=== PATIENT | female | born 1985 | race Two or more races ===

== ENCOUNTER 2017-02-06 14:34 | Outpatient (CLI) | payer SELFPAY ==
[~2017-02-06] VITALS: Ht 157.5 cm; Wt 115.0 kg
[~2017-02-06 14:34] MED LIST: OMEP40CA6 PO
[2017-02-06 15:10] VITALS: BP 115/57
[2017-02-06 15:25] LABS: ASPARTATE AMINO TRANSFERASE 12 U/L (15-37); BLOOD UREA NITROGEN 5 mg/dL (7-18)
[2017-02-06] MEDS ORDERED: METOCLOPRAMIDE 10MG TABLET PO ONE (17:00)
== END 2017-02-06 18:30 | disposition home or self-care (01) ==
LOC: LDOP 14:34
PROVIDERS: ATTEND Obstetrics & Gynecology
DX: O26.893 Other specified pregnancy related conditions, third trimester (principal); O99.343 Other mental disorders complicating pregnancy, third trimester; O34.83 Maternal care for other abnormalities of pelvic organs, third trimester; R10.9 Unspecified abdominal pain; G43.909 Migraine, unspecified, not intractable, without status migrainosus; E28.2 Polycystic ovarian syndrome; F32.9 Major depressive disorder, single episode, unspecified; Z3A.28 28 weeks gestation of pregnancy
CPT/HCPCS: 36415; 59025; 76705; 80053; 81001; 82150; 83690; 84550; 85025; 87086; 99211; G0463

== ENCOUNTER 2017-02-27 11:17 | Outpatient (CLI) | payer OTHER ==
[~2017-02-27] VITALS: Ht 157.5 cm; Wt 115.0 kg
[2017-02-27 12:00] VITALS: BP 119/72
[2017-02-27 12:40] LABS: ASPARTATE AMINO TRANSFERASE 11 U/L (15-37); BLOOD UREA NITROGEN 5 mg/dL (7-18)
[2017-02-27] MEDS ORDERED: MAALOX/HYOSCYAMINE/LIDOCAINE 45 ML BOTTLE PO ONE (13:20)
== END 2017-02-27 14:06 | disposition home or self-care (01) ==
LOC: LDOP 11:17
PROVIDERS: ATTEND Obstetrics & Gynecology
DX: O26.893 Other specified pregnancy related conditions, third trimester (principal); O99.343 Other mental disorders complicating pregnancy, third trimester; F32.9 Major depressive disorder, single episode, unspecified; O34.83 Maternal care for other abnormalities of pelvic organs, third trimester; O21.9 Vomiting of pregnancy, unspecified; E28.2 Polycystic ovarian syndrome; R19.7 Diarrhea, unspecified; R10.11 Right upper quadrant pain; Z3A.33 33 weeks gestation of pregnancy
CPT/HCPCS: 36415; 59025; 76705; 76815; 80053; 82150; 83690; 85025; 99211; G0463

== ENCOUNTER 2017-04-16 09:38 | Outpatient (CLI) | payer MEDICAID, OTHER ==
[~2017-04-16] VITALS: Ht 157.5 cm; Wt 122.7 kg
[2017-04-16 09:48] VITALS: BP 118/69
[2017-04-16] MEDS ORDERED: PREN1TAB60 PO (10:23)
== END 2017-04-16 13:15 | disposition home or self-care (01) ==
LOC: LDOP 09:38
PROVIDERS: ATTEND Obstetrics & Gynecology
DX: O26.893 Other specified pregnancy related conditions, third trimester (principal); O34.83 Maternal care for other abnormalities of pelvic organs, third trimester; O99.343 Other mental disorders complicating pregnancy, third trimester; G43.909 Migraine, unspecified, not intractable, without status migrainosus; E28.2 Polycystic ovarian syndrome; F32.9 Major depressive disorder, single episode, unspecified; Z3A.38 38 weeks gestation of pregnancy
CPT/HCPCS: 59025; 76819; 76820; 99211; G0463

== ENCOUNTER 2017-04-17 03:35 | Inpatient (IN) | payer MEDICAID ==
[~2017-04-17] VITALS: Ht 157.5 cm; Wt 123.0 kg
[~2017-04-17 03:35] MED LIST changes: +PREN1TAB60 PO
[2017-04-17 04:09] VITALS: BP 128/78
[2017-04-17] MEDS ORDERED: OXYTOCIN 30U/ 0.9% NaCL 500ML 500 ML IV ONE (04:24)
[2017-04-17] MEDS ORDERED: D5%-LACTATED RINGERS 1,000 ML IV SCH (04:24)
[2017-04-17] MEDS: LACTATED RINGERS 1,000 ML IV SCH ×2 (04:24→18:42)
[2017-04-17] MEDS ORDERED: FENTANYL PF 100 MCG/2ML IV PRN (04:30)
[2017-04-17] MEDS ORDERED: TERBUTALINE 1 MG/ML, 1ML IVPush PRN (04:30)
[2017-04-17] MEDS ORDERED: ONDANSETRON 2MG/ML, 2ML IVPush PRN (04:30)
[2017-04-17] MEDS ORDERED: FENTANYL PF 100 MCG/2ML IVPush PRN (04:30)
[2017-04-17] MEDS ORDERED: MISOPROSTOL 25 MCG TABLET ONE (04:30)
[2017-04-17] MEDS ORDERED: AMPICILLIN 2 GM in SODIUM CHLORIDE 0.9% 50 ML IVPB ONE (04:30)
[2017-04-17] MEDS ORDERED: OXYTOCIN 30U/ 0.9% NaCL 500ML 500 ML ONE ×2 (04:31→12:46)
[2017-04-17] MEDS ORDERED: NEWBORN KIT ONE (04:31)
[2017-04-17] MEDS: MISOPROSTOL 25 MCG TABLET SL PRN ×2 (05:05→09:15)
[2017-04-17 05:39] LABS: HEMATOCRIT 35.1 % (34.6-47.8); HEMOGLOBIN 11.5 g/dL (11.7-16.4); WHITE BLOOD COUNT 9.4 x10^3/uL (3.4-10)
[2017-04-17 05:45] LABS: DIFF TOTAL CELLS COUNTED 100 CELL DIFF
[2017-04-17 05:46] LABS: VERIFY COUNTS? YES
[2017-04-17 05:47] LABS: ANISOCYTOSIS 1+; GIANT PLATELETS 1+; LARGE PLATELETS 1+
[2017-04-17] MEDS: AMPICILLIN 1 GM in SODIUM CHLORIDE 0.9% 50 ML IVPB SCH ×3 (08:30→18:42)
[2017-04-17] MEDS ORDERED: DIPH,PERTUSS(ACELL),TET VAC/PF NC IM-VACC ONE (11:00)
[2017-04-17] MEDS ORDERED: LIDOCAINE 1%, 20ML ONE (12:45)
[2017-04-17] MEDS ORDERED: MISOPROSTOL 200 MCG TABLET ONE (12:46)
[2017-04-17] MEDS ORDERED: OXYTOCIN 30U/ 0.9% NaCL 500ML 500 ML IV PRN ×2 (12:59)
[2017-04-17] MEDS ORDERED: LIDOCAINE/PF 1.5%-EPI 1:200K, 30ML ONE (18:09)
[2017-04-17] MEDS ORDERED: FENTANYL/BUPIV./NS/PF 250 ML EPIDCONT ONE (18:09)
[2017-04-17] MEDS ORDERED: FENTANYL/BUPIV./NS/PF 250 ML EPIDCONT SCH (18:54)
[2017-04-17] MEDS ORDERED: LACTATED RINGERS 1,000 ML IV SCH ×3 (18:54→21:57)
[2017-04-17] MEDS ORDERED: NALOXONE 0.4 MG/ML, 1ML IVPush PRN (19:00)
[2017-04-17] MEDS ORDERED: LACTATED RINGERS 1,000 ML IVBOLUS PRN (19:00)
[2017-04-17] MEDS ORDERED: EPHEDRINE 50 MG/ML, 1ML IVPush PRN (19:00)
[2017-04-17] MEDS ORDERED: SODIUM CITRATE/CITRIC ACID 30 ML UDC ONE (21:10)
[2017-04-17] MEDS ORDERED: METOCLOPRAMIDE 5 MG/ML, 2ML ONE (21:11)
[2017-04-17] MEDS ORDERED: LIDOCAINE/MPF 2%-EPI 1:200K, 20 ML ONE (21:18)
[2017-04-17] MEDS ORDERED: LACTATED RINGERS 1,000 ML IVBOLUS ONE (21:30)
[2017-04-17] MEDS ORDERED: SODIUM CITRATE/CITRIC ACID 30 ML UDC PO ONE (21:30)
[2017-04-17] MEDS ORDERED: METOCLOPRAMIDE 5 MG/ML, 2ML IV ONE (21:30)
[2017-04-17] MEDS ORDERED: OXYTOCIN 30U/ 0.9% NaCL 500ML 500 ML IV SCH (21:57)
[2017-04-17] MEDS ORDERED: CARBOPROST TROMETHAMINE 250 MCG/ML, 1ML IM PRN (22:00)
[2017-04-17] MEDS ORDERED: ACETAMINOPHEN 325 MG TABLET PO PRN (22:00)
[2017-04-17] MEDS ORDERED: MISOPROSTOL 200 MCG TABLET PR PRN (22:00)
[2017-04-17] MEDS ORDERED: METHYLERGONOVINE 0.2 MG/ML IM PRN (22:00)
[2017-04-17] MEDS ORDERED: morphine SULFATE 10 MG/ML, 1ML IVPush PRN (22:00)
[2017-04-17] MEDS ORDERED: ONDANSETRON 2MG/ML, 2ML IV PRN (22:00)
[2017-04-17] MEDS ORDERED: MEPERIDINE/PF 50 MG/ML IM PRN (22:00)
[2017-04-17] MEDS ORDERED: METOCLOPRAMIDE 5 MG/ML, 2ML IV PRN (22:00)
[2017-04-17] MEDS ORDERED: FENTANYL PF 250 MCG/5ML ONE (22:27)
[2017-04-17] MEDS ORDERED: FENTANYL PF 100 MCG/2ML ONE (23:42)
[2017-04-17] MEDS ORDERED: OXYcodone 5 MG/5 ML ORAL.SOL UDC ONE (23:42)
[2017-04-18] MEDS ORDERED: ONDANSETRON 2MG/ML, 2ML IV PRN (00:30)
[2017-04-18] MEDS ORDERED: MEPERIDINE/PF 25MG/0.5ML IV PRN (00:30)
[2017-04-18] MEDS ORDERED: morphine SULFATE 10 MG/ML, 1ML IV PRN (00:30)
[2017-04-18] MEDS ORDERED: FENTANYL PF 100 MCG/2ML IVPush PRN (00:30)
[2017-04-18] MEDS ORDERED: MIDAZOLAM 1 MG/ML, 5ML IV PRN (00:30)
[2017-04-18] MEDS ORDERED: OXYcodone 5 MG/5 ML ORAL.SOL UDC PO PRN ×2 (00:30)
[2017-04-18] MEDS ORDERED: EPHEDRINE 50 MG/ML, 1ML IV PRN (00:30)
[2017-04-18] MEDS ORDERED: FENTANYL PF 100 MCG/2ML IV ONE (00:30)
[2017-04-18 01:00] VITALS: BP 141/85
[2017-04-18] MEDS: OXYcodone IR 5MG TABLET PO PRN ×7 (01:15→23:03)
[2017-04-18] MEDS: IBUPROFEN 600 MG TABLET PO PRN ×3 (02:38→17:46)
[2017-04-18 03:39] VITALS: BP 131/75
[2017-04-18 06:24] LABS: HEMOGLOBIN 10.6 g/dL (11.7-16.4); WHITE BLOOD COUNT 15.3 x10^3/uL (3.4-10)
[2017-04-18 07:25] VITALS: BP 120/69
[2017-04-18 13:00] VITALS: BP 116/76
[2017-04-18] MEDS: DOCUSATE 100 MG CAPSULE PO PRN ×2 (13:22→23:03)
[2017-04-18] MEDS: PRENATAL VIT/IRON/FA 1 EACH TABLET PO SCH (13:22)
[2017-04-18 21:00] VITALS: BP 120/75
[2017-04-19] MEDS: OXYcodone IR 5MG TABLET PO PRN ×5 (04:11→23:03)
[2017-04-19] MEDS: IBUPROFEN 600 MG TABLET PO PRN ×3 (04:11→23:03)
[2017-04-19 07:44] VITALS: BP 118/79
[2017-04-19] MEDS: DOCUSATE 100 MG CAPSULE PO PRN ×2 (09:04→23:03)
[2017-04-19] MEDS: PRENATAL VIT/IRON/FA 1 EACH TABLET PO SCH (09:04)
[2017-04-19 19:05] VITALS: BP 132/80
[2017-04-20] MEDS: OXYcodone IR 5MG TABLET PO PRN ×5 (03:36→22:20)
[2017-04-20] MEDS: IBUPROFEN 600 MG TABLET PO PRN ×3 (05:25→22:20)
[2017-04-20 08:00] VITALS: BP 115/64
[2017-04-20] MEDS: PRENATAL VIT/IRON/FA 1 EACH TABLET PO SCH (09:11)
[2017-04-20] MEDS: DOCUSATE 100 MG CAPSULE PO PRN ×2 (09:11→22:20)
[2017-04-20 20:00] VITALS: BP 125/69
[2017-04-21] MEDS: OXYcodone IR 5MG TABLET PO PRN ×3 (02:26→12:05)
[2017-04-21] MEDS: IBUPROFEN 600 MG TABLET PO PRN (06:26)
[2017-04-21 07:00] VITALS: BP 133/70
[2017-04-21] MEDS: DOCUSATE 100 MG CAPSULE PO PRN (08:16)
[2017-04-21] MEDS ORDERED: IBUP-1222 PO (08:33)
[2017-04-21] MEDS ORDERED: OXYC-302 PO (08:33)
[2017-04-21] MEDS ORDERED: SENN-1 PO (08:34)
[2017-04-21] MEDS ORDERED: FERR324T8 PO (08:36)
[2017-04-21] MEDS: PRENATAL VIT/IRON/FA 1 EACH TABLET PO SCH (09:10)
== END 2017-04-21 15:36 | disposition home or self-care (01) | DRG 766 ==
LOC: LDOP 03:35 → LDIP 04:29 → 2NW 04-18 00:32
PROVIDERS: ADMIT Obstetrics & Gynecology; ATTEND Obstetrics & Gynecology
PROC: 10D00Z1 Extraction of Products of Conception, Low, Open Approach (ICD-10-PCS; principal; 2017-04-17)
DX: O62.0 Primary inadequate contractions (principal); E66.01 Morbid (severe) obesity due to excess calories; Z37.0 Single live birth; O99.214 Obesity complicating childbirth; O75.89 Other specified complications of labor and delivery; Z3A.38 38 weeks gestation of pregnancy; M35.00 Sjogren syndrome, unspecified; O69.81X0 Labor and delivery complicated by cord around neck, without compression, not applicable or unspecified; O77.0 Labor and delivery complicated by meconium in amniotic fluid
CPT/HCPCS: 36415; 82803; 85025; 86850; 86900; 89060; 90715; J0290; J3010; J2590; J2765; J7120; Q0114

== ENCOUNTER 2018-10-16 08:08 | Emergency (ER) | payer MEDICAID ==
[~2018-10-16] VITALS: Ht 157.5 cm; Wt 121.9 kg
[~2018-10-16 08:08] MED LIST changes: +FERR324T8 PO; +IBUP-1222 PO; +OXYC-302 PO; +SENN-92 PO
[2018-10-16 08:11] VITALS: BP 118/87
--- NOTE | 2018-10-16 08:31 | NUR ---
PT PRESENTS TO ED WITH COUGH/COLD X1W, "COUGHING UP BROWNISH/GREEN WITH BLOOD". PROVIDER AT BEDSIDE. EKG DONE. CALL LIGHT WITHIN REACH. VSS. WCTM
[2018-10-16 09:20] LABS: RAPID INFLUENZA A Negative (Negative); RAPID INFLUENZA B Negative (Negative)
== END 2018-10-16 09:55 | disposition home or self-care (01) ==
LOC: ED 09:05
DX: J06.9 Acute upper respiratory infection, unspecified (principal); G43.909 Migraine, unspecified, not intractable, without status migrainosus; K21.9 Gastro-esophageal reflux disease without esophagitis
CPT/HCPCS: 71046; 87081; 87400; 87880; 93005; 99284

== ENCOUNTER 2018-10-24 07:39 | Emergency (ER) | payer OTHER, MEDICAID ==
[~2018-10-24] VITALS: Ht 157.5 cm; Wt 120.8 kg
[2018-10-24 07:42] VITALS: BP 114/76
--- NOTE | 2018-10-24 08:12 | NUR ---
PT AMBULATORY TO ROOM 16 W/ C/O COUGH X 1 WK. PT STATES SHE WAS RECENTLY DX W/ STREP THROAT AND IS ON AMOXIXILLIN 50-0 MG TID. PT STATES COUGH W/ PHLEGM BROWN GREEN W BRB STREAKS. [facility].
== END 2018-10-24 09:15 | disposition home or self-care (01) ==
LOC: ED 09:09
DX: J20.9 Acute bronchitis, unspecified (principal); K21.9 Gastro-esophageal reflux disease without esophagitis; G43.909 Migraine, unspecified, not intractable, without status migrainosus
CPT/HCPCS: 71046; 99283

== ENCOUNTER → 2018-11-04 | Outpatient (CLI) | payer MEDICAID, OTHER ==
[2018-11-04 12:46] LABS: BASOPHILS # (AUTO) 0.06 x10^3/uL (0-0.1); BASOPHILS % (AUTO) 1 % (0-1); EOSINOPHILS # (AUTO) 0.18 x10^3/uL (0-0.4); EOSINOPHILS % (AUTO) 2 % (1-7); LYMPHOCYTES # (AUTO) 3.08 x10^3/uL (1-3.4); LYMPHOCYTES % (AUTO) 32 % (22-44); MD NO; MEAN CORPUSCULAR HEMOGLOBIN 26.8 pg (27.0-34.8); MEAN CORPUSCULAR HGB CONC 32.2 g/dL (32.4-35.8); MEAN CORPUSCULAR VOLUME 83.1 fL (80-100); MEAN PLATELET VOLUME 10.5 fL (7.4-10.4); MONOCYTES # (AUTO) 0.44 x10^3/uL (0.2-0.8); MONOCYTES % (AUTO) 5 % (2-9); NEUTROPHILS # (AUTO) 5.76 x10^3/uL (1.8-6.8); NEUTROPHILS % (AUTO) 61 % (42-75); PLATELET COUNT 293 x10^3/uL (130-400); RED BLOOD COUNT 4.99 x10^6/uL (3.82-5.3)
[2018-11-04 13:03] LABS: ALBUMIN 3.7 g/dL (3.4-5.0); ANION GAP 5 mmol/L (5-15); CALCIUM 9.1 mg/dL (8.5-10.1); CHLORIDE 106 mmol/L (98-107)
[2018-11-04 13:12] LABS: ALANINE AMINOTRANSFERASE 23 U/L (12-78); ALKALINE PHOSPHATASE 113 U/L (45-117); BILIRUBIN,TOTAL 0.4 mg/dL (0.2-1.0); CHOL/HDL RATIO 4.8; CHOLESTEROL, TOTAL 191 mg/dL (140-239); CREATININE 0.69 mg/dL (0.55-1.02); FREE T4 (FREE THYROXINE) 1.08 ng/dL (0.76-1.46); HDL CHOL % 21 % (28-40); HDL CHOLESTEROL (DIRECT) 40 mg/dL (40-60); LDL CHOLESTEROL,CALCULATED 127 mg/dL (54-169); LDL/HDL RATIO 3.2 (0.5-3.0); TOTAL PROTEIN 8.3 g/dL (6.4-8.2); TRIGLYCERIDES 121 mg/dL (50-200); VLDL CHOLESTEROL 24 mg/dL (0-25)
[2018-11-04 13:27] LABS: HEMOGLOBIN A1C 6.5 % (4.2-6.3)
== END | disposition home or self-care (01) ==
LOC: CFH 09:26
PROVIDERS: ATTEND Nurse Practitioner Family
DX: R73.9 Hyperglycemia, unspecified (principal); E04.1 Nontoxic single thyroid nodule; E28.2 Polycystic ovarian syndrome; M35.00 Sjogren syndrome, unspecified
CPT/HCPCS: 36415; 80053; 80061; 82306; 83001; 83002; 83036; 84439; 84443; 85025

== ENCOUNTER → 2018-12-08 | Outpatient (CLI) | payer OTHER | END | disposition home or self-care (01) | LOC: CFH 11:00 | PROVIDERS: ATTEND Family Medicine | DX: E04.1 Nontoxic single thyroid nodule (principal) | CPT/HCPCS: 76536 ==

== ENCOUNTER 2019-02-19 10:41 | Day surgery (SDC) | payer OTHER ==
[~2019-02-19] VITALS: Ht 160 cm; Wt 124.5 kg
[~2019-02-19 10:41] MED LIST changes: +BUPIVACAINE/EPI 0.5% 1:200K ONE
[2019-02-19] MEDS ORDERED: FENTANYL PF 250 MCG/5ML ONE (10:50)
[2019-02-19] MEDS ORDERED: MIDAZOLAM 1 MG/ML, 2ML ONE (10:50)
[2019-02-19] MEDS ORDERED: CEFAZOLIN 1,000 MG ONE ×2 (10:54→11:54)
[2019-02-19] MEDS ORDERED: PROPOFOL 10 MG/ML, 20ML ONE (10:54)
[2019-02-19] MEDS ORDERED: DEXAMETHASONE 4 MG/ML, 1ML ONE (10:54)
[2019-02-19] MEDS ORDERED: ONDANSETRON 2MG/ML, 2ML ONE (10:54)
[2019-02-19] MEDS ORDERED: LACTATED RINGERS 1,000 ML IV SCH (11:19)
[2019-02-19] MEDS ORDERED: METF500T17 PO (11:22)
[2019-02-19] MEDS ORDERED: OMEP40CA6 PO (11:22)
[2019-02-19] MEDS ORDERED: KETO1SPR IH (11:22)
[2019-02-19] MEDS ORDERED: MULT-658 PO (11:23)
[2019-02-19] MEDS ORDERED: ONDANSETRON ODT 8 MG PO ONE (11:30)
[2019-02-19] MEDS ORDERED: ACETAMINOPHEN 500 MG TABLET PO ONE (11:30)
[2019-02-19] MEDS ORDERED: SCOPOLAMINE PATCH, 1.5MG PATCH.TD72 TD ONE (11:30)
[2019-02-19] MEDS ORDERED: GABAPENTIN 300 MG CAPSULE PO ONE (11:30)
[2019-02-19 11:47] VITALS: BP 98/66
[2019-02-19] MEDS ORDERED: ONDANSETRON 2MG/ML, 2ML IV PRN (12:00)
[2019-02-19] MEDS ORDERED: PROMETHAZINE 25 MG SUPP PR PRN (12:00)
[2019-02-19] MEDS ORDERED: HALOPERIDOL 5 MG/ML IV PRN (12:00)
[2019-02-19] MEDS ORDERED: LABETALOL 5MG/ML, 20ML IV PRN (12:00)
[2019-02-19] MEDS ORDERED: FENTANYL PF 100 MCG/2ML IV PRN (12:00)
[2019-02-19] MEDS ORDERED: MORPHINE SULFATE 4 MG/ML, 1ML IVPush PRN (12:00)
[2019-02-19] MEDS ORDERED: ONDANSETRON ODT 8 MG PO PRN (12:00)
[2019-02-19] MEDS ORDERED: hydrALAzine 20 MG/ML, 1ML IV PRN (12:00)
[2019-02-19] MEDS ORDERED: PROMETHAZINE 12.5 MG SUPP PR PRN (12:00)
[2019-02-19] MEDS ORDERED: MEPERIDINE/PF 25MG/0.5ML IVPush PRN (12:00)
[2019-02-19] MEDS ORDERED: PROMETHAZINE 25 MG/ML, 1ML IV PRN (12:00)
[2019-02-19] MEDS ORDERED: HYDROmorphone 2 MG/ML, 1ML IVPush PRN (12:00)
[2019-02-19] MEDS ORDERED: PROMETHAZINE 25 MG/ML, 1ML IM PRN ×2 (12:00)
[2019-02-19] MEDS ORDERED: FENTANYL PF 100 MCG/2ML ONE (13:28)
[2019-02-19] MEDS ORDERED: OXYcodone 5 MG/5 ML ORAL.SOL UDC ONE ×2 (13:28→13:38)
[2019-02-19] MEDS: OXYcodone 5 MG/5 ML ORAL.SOL UDC PO PRN ×2 (13:30→13:40)
[2019-02-19] MEDS ORDERED: morphine SULFATE 10 MG/ML, 1ML ONE (14:34)
== END 2019-02-19 16:30 | disposition home or self-care (01) ==
LOC: OUT 10:41
PROVIDERS: ATTEND Surgery
DX: D48.1 Neoplasm of uncertain behavior of connective and other soft tissue (principal); E28.2 Polycystic ovarian syndrome; K21.9 Gastro-esophageal reflux disease without esophagitis; M35.00 Sjogren syndrome, unspecified; E66.01 Morbid (severe) obesity due to excess calories; Z68.43 Body mass index [BMI] 50.0-59.9, adult; Z72.89 Other problems related to lifestyle; Z79.84 Long term (current) use of oral hypoglycemic drugs; Z79.899 Other long term (current) drug therapy; Z87.891 Personal history of nicotine dependence
CPT/HCPCS: 21552; 81025; 88304; J0690; J1100; J2250; J2270; J2405; J2704; J3010; J7120; Q0162; 88307

== ENCOUNTER 2020-03-25 13:12 | Emergency (ER) | payer OTHER ==
[~2020-03-25] VITALS: Ht 157.5 cm; Wt 119.2 kg
[~2020-03-25 13:12] MED LIST changes: -BUPIVACAINE/EPI 0.5% 1:200K ONE; +KETO1SPR IH; +METF500T17 PO; +MULT-658 PO; +OMEP40CA42 PO; -OMEP40CA6 PO
--- NOTE | 2020-03-25 13:36 | NUR ---
PT HAD HER LEFT BACK MORAL ROOT CANAL THAT WAS REMOVED YESTERDAY. PT PRESENTS TACHY, AND WITH A FEVER, LEFT CHEEK SWELLING NOTED. IN THE MOUTH WHITE DISCHARGE IS NOTED, PT NOTES DRAINAGE AND STATES SHE NOT A FOUL TASTE/ ODOR. PT STATES "MY GOT PAID TODAY SO I HAD TO WAIT TO GET MY MEDS" PT STARTED AMOXICILLIN TODAY.
[2020-03-25] MEDS ORDERED: ACETAMINOPHEN 500 MG TABLET ONE (13:59)
[2020-03-25] MEDS ORDERED: ACETAMINOPHEN 500 MG TABLET PO ONE (14:00)
--- NOTE | 2020-03-25 14:06 | NUR ---
PT HAS BEEN AMBULATORY TO BATHROOM, STEADY GAIT. PT NOW LAYING IN BED, CONNECTED TO BP AND O2 MONITORS, CALL LIGHT IN REACH, AT BEDSIDE.
[2020-03-25 14:18] LABS: MICROSCOPIC INDICATED
[2020-03-25 14:40] LABS: ALBUMIN 3.9 g/dL (3.4-5.0); ANION GAP 6 mmol/L (5-15); BASOPHILS # (AUTO) 0.02 x10^3/uL (0-0.1); BASOPHILS % (AUTO) 0 % (0-1); CALCIUM 9.2 mg/dL (8.5-10.1); CHLORIDE 105 mmol/L (98-107); CREATININE 0.95 mg/dL (0.55-1.02); EOSINOPHILS # (AUTO) 0.02 x10^3/uL (0-0.4); EOSINOPHILS % (AUTO) 0 % (1-7); LYMPHOCYTES % (AUTO) 9 % (22-44); MD NO; MEAN CORPUSCULAR HEMOGLOBIN 25.9 pg (27.0-34.8); MEAN CORPUSCULAR VOLUME 80.9 fL (80-100); MEAN PLATELET VOLUME 10.5 fL (7.4-10.4); MONOCYTES % (AUTO) 6 % (2-9); NEUTROPHILS # (AUTO) 12.06 x10^3/uL (1.8-6.8); NEUTROPHILS % (AUTO) 85 % (42-75); PLATELET COUNT 237 x10^3/uL (130-400); RED BLOOD COUNT 5.08 x10^6/uL (3.82-5.3); RED CELL DISTRIBUTION WIDTH 16.7 % (9.6-15.2)
[2020-03-25] MEDS ORDERED: HYDROcodone/APAP 5/325 TABLET ONE (15:42)
--- NOTE | 2020-03-25 15:50 | NUR ---
PT AMBULATORY TO BATHROOM, STEADY GAIT.
--- NOTE | 2020-03-25 15:59 | NUR ---
BEDSIDE REPORT GIVEN TO MATTHEW HARRISON.
[2020-03-25] MEDS ORDERED: HYDROcodone/APAP 5/325 TABLET PO ONE (16:00)
[2020-03-25] MEDS ORDERED: CEFTRIAXONE 1,000 MG ONE (16:25)
[2020-03-25] MEDS ORDERED: LIDOCAINE-MPF 1%, 5ML ONE (16:26)
[2020-03-25] MEDS ORDERED: CEFTRIAXONE 1,000 MG IM ONE (16:30)
[2020-03-25 17:30] VITALS: BP 121/67
== END 2020-03-25 17:32 | disposition home or self-care (01) ==
LOC: ED 13:54
DX: N30.01 Acute cystitis with hematuria (principal); K08.89 Other specified disorders of teeth and supporting structures; R39.15 Urgency of urination; R00.0 Tachycardia, unspecified; M79.7 Fibromyalgia
CPT/HCPCS: 36415; 71045; 80048; 81001; 82040; 83605; 85025; 87040; 87077; 87086; 96372; 99285; J0696; 87186

== ENCOUNTER 2020-03-27 03:14 | Emergency (ER) | payer OTHER ==
[~2020-03-27] VITALS: Ht 157.5 cm; Wt 118.0 kg
[2020-03-27 03:16] VITALS: BP 127/70
[2020-03-27] MEDS ORDERED: ONDANSETRON 2MG/ML, 2ML ONE (03:59)
[2020-03-27] MEDS ORDERED: CEFTRIAXONE PMX 1GM/50ML 50 ML ONE (03:59)
[2020-03-27] MEDS ORDERED: SODIUM CHLORIDE 0.9% 1,000ML IVBOLUS ONE (04:00)
[2020-03-27] MEDS ORDERED: CEFTRIAXONE PMX 1GM/50ML 50 ML IV ONE (04:00)
[2020-03-27] MEDS ORDERED: ONDANSETRON 2MG/ML, 2ML IVPush ONE (04:00)
[2020-03-27 04:27] LABS: BASOPHILS # (AUTO) 0.04 x10^3/uL (0-0.1); BASOPHILS % (AUTO) 0 % (0-1); EOSINOPHILS # (AUTO) 0.07 x10^3/uL (0-0.4); EOSINOPHILS % (AUTO) 1 % (1-7); LYMPHOCYTES % (AUTO) 13 % (22-44); MD NO; MEAN CORPUSCULAR HEMOGLOBIN 25.9 pg (27.0-34.8); MEAN CORPUSCULAR HGB CONC 32.2 g/dL (32.4-35.8); MEAN CORPUSCULAR VOLUME 80.4 fL (80-100); MEAN PLATELET VOLUME 10.4 fL (7.4-10.4); MONOCYTES # (AUTO) 1.01 x10^3/uL (0.2-0.8); MONOCYTES % (AUTO) 8 % (2-9); NEUTROPHILS # (AUTO) 10.09 x10^3/uL (1.8-6.8); NEUTROPHILS % (AUTO) 79 % (42-75); PLATELET COUNT 194 x10^3/uL (130-400); RED BLOOD COUNT 4.54 x10^6/uL (3.82-5.3)
[2020-03-27] MEDS ORDERED: KETOROLAC 30 MG/1 ML IVPush ONE (04:30)
[2020-03-27 04:33] LABS: ALBUMIN 3.2 g/dL (3.4-5.0); ANION GAP 6 mmol/L (5-15); CALCIUM 8.3 mg/dL (8.5-10.1); CHLORIDE 107 mmol/L (98-107); CREATININE 0.85 mg/dL (0.55-1.02)
[2020-03-27] MEDS ORDERED: KETOROLAC 30 MG/1 ML ONE (04:43)
--- NOTE | 2020-03-27 05:06 | NUR ---
PATIENT UP TO RESTROOM, TOLERATED WELL. GAIT STEADY. DENIES ANY NEEDS AT THIS TIME.
[2020-03-27 05:18] LABS: MICROSCOPIC INDICATED
--- NOTE | 2020-03-27 05:21 | NUR ---
REPORT FROM DANIEL ASSUMING CARE OF PT
--- NOTE | 2020-03-27 05:58 | NUR ---
Patient/Caregiver given discharge instructions and they have confirmed that they understand the instructions. Patient ambulatory with steady gait. Addendum: 03/27/20 at 0559 by [email or web address] piv dc prior to pt leaving facility
== END 2020-03-27 06:02 | disposition home or self-care (01) ==
LOC: ED 05:40
DX: N10 Acute pyelonephritis (principal); N39.0 Urinary tract infection, site not specified; R53.1 Weakness; K21.9 Gastro-esophageal reflux disease without esophagitis; Z87.891 Personal history of nicotine dependence
CPT/HCPCS: 36415; 80048; 81001; 82040; 84703; 85025; 87086; 96365; 96375; 99284; J0696; J1885; J2405; J7030; 96374

== ENCOUNTER → 2020-04-26 | Outpatient (CLI) | payer OTHER ==
[2020-04-26 12:27] LABS: BASOPHILS # (AUTO) 0.05 x10^3/uL (0-0.1); BASOPHILS % (AUTO) 1 % (0-1); EOSINOPHILS # (AUTO) 0.21 x10^3/uL (0-0.4); EOSINOPHILS % (AUTO) 3 % (1-7); LYMPHOCYTES # (AUTO) 3.49 x10^3/uL (1-3.4); LYMPHOCYTES % (AUTO) 41 % (22-44); MD NO; MEAN CORPUSCULAR HEMOGLOBIN 25.7 pg (27.0-34.8); MEAN CORPUSCULAR HGB CONC 31.8 g/dL (32.4-35.8); MEAN CORPUSCULAR VOLUME 80.9 fL (80-100); MEAN PLATELET VOLUME 9.7 fL (7.4-10.4); MONOCYTES # (AUTO) 0.45 x10^3/uL (0.2-0.8); MONOCYTES % (AUTO) 5 % (2-9); NEUTROPHILS # (AUTO) 4.36 x10^3/uL (1.8-6.8); NEUTROPHILS % (AUTO) 51 % (42-75); PLATELET COUNT 234 x10^3/uL (130-400); RED BLOOD COUNT 4.67 x10^6/uL (3.82-5.3); RED CELL DISTRIBUTION WIDTH 16.8 % (9.6-15.2)
[2020-04-26 12:38] LABS: CHLORIDE 109 mmol/L (98-107)
[2020-04-26 12:55] LABS: ALANINE AMINOTRANSFERASE 17 U/L (12-78); ALBUMIN 3.4 g/dL (3.4-5.0); ALKALINE PHOSPHATASE 100 U/L (45-117); ANION GAP 6 mmol/L (5-15); BILIRUBIN,TOTAL 0.2 mg/dL (0.2-1.0); CALCIUM 8.7 mg/dL (8.5-10.1); CHOL/HDL RATIO 6.1; CHOLESTEROL, TOTAL 219 mg/dL (140-239); CREATININE 0.67 mg/dL (0.55-1.02); HDL CHOL % 16 % (28-40); HDL CHOLESTEROL (DIRECT) 36 mg/dL (40-60); LDL CHOLESTEROL,CALCULATED 156 mg/dL (54-169); LDL/HDL RATIO 4.3 (0.5-3.0); TOTAL PROTEIN 7.8 g/dL (6.4-8.2); TRIGLYCERIDES 136 mg/dL (50-200); VLDL CHOLESTEROL 27 mg/dL (0-25)
== END | disposition home or self-care (01) ==
LOC: LAB 11:43
PROVIDERS: ATTEND Student in an Organized Health Care Education/Training Program
DX: N64.52 Nipple discharge (principal); E28.2 Polycystic ovarian syndrome
CPT/HCPCS: 36415; 80053; 80061; 82043; 83036; 84146; 84443; 85025; 86038; 86850; 86900

== ENCOUNTER → 2020-08-16 | Outpatient (CLI) | payer OTHER | END | disposition home or self-care (01) | LOC: CFH 07:42 | PROVIDERS: ATTEND Orthopaedic Surgery Foot and Ankle Surgery | DX: S92.352K Displaced fracture of fifth metatarsal bone, left foot, subsequent encounter for fracture with nonunion (principal); X58.XXXD Exposure to other specified factors, subsequent encounter ==

== ENCOUNTER → 2021-01-03 | Outpatient (CLI) | payer OTHER ==
[~2021-01-03] MED LIST changes: -OXYC-302 PO; +OXYC1TAB14 PO
== END | disposition home or self-care (01) ==
LOC: RAD 09:06
PROVIDERS: ATTEND Family Medicine
DX: R11.0 Nausea (principal)
CPT/HCPCS: 76705

== ENCOUNTER 2021-01-10 13:24 | Emergency (ER) | payer OTHER ==
[~2021-01-10] VITALS: Ht 160 cm; Wt 125.1 kg
[~2021-01-10 13:24] MED LIST changes: -OMEP40CA42 PO; +OMEP40CA8 PO
[2021-01-10 14:28] LABS: ALANINE AMINOTRANSFERASE 22 U/L (12-78); ALBUMIN 3.6 g/dL (3.4-5.0); ANION GAP 5 mmol/L (5-15); CALCIUM 8.7 mg/dL (8.5-10.1); CHLORIDE 107 mmol/L (98-107); CREATININE 0.63 mg/dL (0.55-1.02)
[2021-01-10 14:32] LABS: BASOPHILS % (AUTO) 1 % (0-1); EOSINOPHILS % (AUTO) 2 % (1-7); LYMPHOCYTES % (AUTO) 32 % (22-44); MEAN CORPUSCULAR HEMOGLOBIN 25.4 pg (27.0-34.8); MEAN CORPUSCULAR HGB CONC 32.1 g/dL (32.4-35.8); MEAN PLATELET VOLUME 10.1 fL (7.4-10.4); MONOCYTES % (AUTO) 6 % (2-9); NEUTROPHILS % (AUTO) 59 % (42-75); PLATELET COUNT 238 x10^3/uL (130-400); RED BLOOD COUNT 5.03 x10^6/uL (3.82-5.3); RED CELL DISTRIBUTION WIDTH 16.2 % (9.6-15.2)
[2021-01-10 14:33] LABS: ALKALINE PHOSPHATASE 100 U/L (45-117); BILIRUBIN,TOTAL 0.3 mg/dL (0.2-1.0); TOTAL PROTEIN 8.1 g/dL (6.4-8.2)
[2021-01-10 14:34] LABS: MD NO
--- NOTE | 2021-01-10 16:48 | NUR ---
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
--- NOTE | 2021-01-10 16:54 | NUR ---
First contact with patient: Patient presents to ER c/o epigastric pain radiating to back x2 weeks. Patient states she has also had N/V/D x2 weeks. She states she has been taking nausea meds recently and is now only having diarrhea. Today the pain has increased. Denies blood in stool. Patient is in NAD. Respirations even and unlabored.
--- NOTE | 2021-01-10 16:55 | NUR ---
Patient up to BR for urine sample.
--- NOTE | 2021-01-10 17:03 | NUR ---
Patient states she has also had an US recently; her PCP ordered it. PCP wanted to do further testing.
[2021-01-10 17:55] LABS: MICROSCOPIC INDICATED
[2021-01-10] MEDS ORDERED: MAALOX/HYOSCYAMINE/LIDOCAINE 45 ML BTL PO ONE (18:00)
[2021-01-10] MEDS ORDERED: ONDANSETRON 2MG/ML, 2ML IVPush ONE (18:00)
[2021-01-10] MEDS ORDERED: SODIUM CHLORIDE 0.9% 1,000ML IVBOLUS ONE (18:00)
[2021-01-10] MEDS ORDERED: MAALOX/HYOSCYAMINE/LIDOCAINE 45 ML BTL ONE (18:07)
[2021-01-10] MEDS ORDERED: ONDANSETRON 2MG/ML, 2ML ONE (18:07)
[2021-01-10] MEDS ORDERED: OMNIPAQUE 350 MG/ML, 100ML BOTTLE ONE (19:08)
[2021-01-10 20:13] VITALS: BP 106/45
--- NOTE | 2021-01-10 20:13 | NUR ---
Discharge instructions given. All questions and concerns addressed. Patient ambulatory with a steady gait. Belongings with patient.
== END 2021-01-10 20:15 | disposition home or self-care (01) ==
LOC: ED 13:54
DX: R10.13 Epigastric pain (principal); R10.31 Right lower quadrant pain; R11.2 Nausea with vomiting, unspecified; M54.5 Low back pain; R63.0 Anorexia; Z68.42 Body mass index [BMI] 45.0-49.9, adult
CPT/HCPCS: 36415; 74177; 80053; 81001; 83690; 84703; 85025; 87077; 87086; 87186; 96374; 99285; J2405; J7030; Q9967

== ENCOUNTER 2021-04-03 19:51 | Emergency (ER) | payer OTHER ==
[~2021-04-03] VITALS: Ht 157.5 cm; Wt 123.0 kg
[2021-04-03 20:18] VITALS: BP 130/63
--- NOTE | 2021-04-03 20:19 | NUR ---
pt went to [facility], neg strep test, covid test pending. pt a&o, resps even and unlabored, vss, nadn. MARCIANO jarrell at bedside for eval
[2021-04-03] MEDS ORDERED: AZITHROMYCIN 500 MG TABLET PO/NG ONE (21:00)
[2021-04-03] MEDS ORDERED: KETOROLAC 60 MG/2 ML ONE (21:29)
[2021-04-03] MEDS ORDERED: AZITHROMYCIN 250 MG TABLET ONE (21:30)
[2021-04-03] MEDS ORDERED: KETOROLAC 30 MG/1 ML IM ONE (21:30)
--- NOTE | 2021-04-03 21:35 | NUR ---
pt medicated per order, educated on dc instructions, verbalized undertsanding.
== END 2021-04-03 21:37 | disposition home or self-care (01) ==
LOC: ED 20:21
DX: U07.1 COVID-19 (principal); J06.9 Acute upper respiratory infection, unspecified; R06.02 Shortness of breath; R94.31 Abnormal electrocardiogram [ECG] [EKG]; K21.9 Gastro-esophageal reflux disease without esophagitis; I10 Essential (primary) hypertension; G43.909 Migraine, unspecified, not intractable, without status migrainosus; Z87.891 Personal history of nicotine dependence
CPT/HCPCS: 71045; 93005; 96372; 99283; J1885; J7512